=== PATIENT | male | born 1970 | race Caucasian/White ===

== ENCOUNTER 2018-09-04 07:55 | Day surgery (SDC) | payer BC, MEDICAID ==
[2018-09-01 17:23] VITALS: BMI 35.7
--- NOTE | 2018-09-03 17:11 | HP ---
HISTORY AND PHYSICAL DATE OF SURGERY: 09/04/2018 Joey Jones is a 48-year-old patient seen with progressive left shoulder pain. We discussed treatment options. He elected to proceed with arthroscopy. Consent was obtained. PAST MEDICAL HISTORY: Noncontributory. PAST SURGICAL HISTORY: Noncontributory. DAILY MEDICATIONS: Tramadol as needed. ALLERGIES: NONE REPORTED. SOCIAL HISTORY: Denies current tobacco use. PHYSICAL EVALUATION OF THE LEFT SHOULDER: Flexion 130 degrees, abduction 130 degrees, external rotation 20 degrees with weakness. Tenderness along the anterolateral acromion and rotator cuff insertion site. Impingement sign is positive at 90 degrees. Drop-arm sign is positive. His distal neurovascular exam is intact. RADIOGRAPHS: Radiographs of the left shoulder revealed a type 2 anterior acromion, evidence for acromioclavicular joint osteoarthritis and cystic changes of the greater tuberosity. The left shoulder MRI revealed rotator cuff tendon tear. IMPRESSION: Left shoulder impingement with rotator cuff tear. PLAN: Left shoulder arthroscopy with subacromial decompression, probable arthroscopic rotator cuff repair, possible Amando procedure and debridement. MMODL / IJN: [id number] /
[~2018-09-04 07:55] MED LIST: DEXAMETHASONE SOD PHOSPHATE 10 MG/ML 1 ML VIAL IV ONE; HYDROmorphone 0.5 MG/0.5 ML SYRINGE IVP PRN; LACTATED RINGERS 1,000 ML IV SCH; LIDOCAINE 1% 20 ML VIAL (10MG/ML) FOR IV START INTRADERMA PRN; MIDAZOLAM (PF) 2 MG/2 ML VIAL IV PRN; ONDANSETRON 4 MG/2 ML VIAL IVP ONE; SCOPOLAMINE 1.5MG/72HR PATCH TRANSDERM ONE; ceFAZolin IN SWFI 2 GM/20 ML SYRINGE IVP ONE
[2018-09-04] MEDS ORDERED: MIDAZOLAM 2 MG/2 ML VIAL IV ONE (09:06)
[2018-09-04] MEDS ORDERED: LIDOCAINE 1% INJ 10MG/ML (20 ML MDV) ONE (09:33)
[2018-09-04] MEDS ORDERED: PROPOFOL 10 MG/ML 20 ML VIAL IV ONE (09:33)
[2018-09-04] MEDS ORDERED: MIDAZOLAM 2 MG/2 ML VIAL ONE (09:33)
[2018-09-04] MEDS ORDERED: ROPIVACAINE 5 MG/ML 30 ML VIAL ONE (09:33)
[2018-09-04] MEDS ORDERED: fentaNYL (PF) 50 MCG/ML 2 ML AMP ONE (09:33)
[2018-09-04] MEDS ORDERED: SUCCINYLCHOLINE CHLORIDE 100 MG/5 ML SYR IV ONE (09:33)
--- NOTE | 2018-09-04 09:39 | P.ONQ ---
Anesthesiology Proc Note - PNB - Peripheral Nerve Block Performed Left Interscalene Single Time Out Performed: Yes Procedure Start Time: :08 Procedure Stop Time: :15 Indication: Acute Post-Operative Pain, Requested by physician Sedation Type: Sedate with meaningful contact maintained Preparation: Sterile Prep Position: Supine Needle Size: 50mm (2") Needle Gauge: 21 Technique: Ultrasound Injectate: 0.5% Ropivacaine (see comment for volume) (ropi .5% 30cc plus dexamethasone 4mg) Blood Aspirated: No Pain Paresthesia on Injection Noted: No Resistance on Injection: Normal Events: Uneventful and Well Tolerated
[2018-09-04 11:24] VITALS: TEMP 97.1
--- NOTE | 2018-09-04 11:26 | P.OP ---
Date of Procedure: 09/04/18 Preoperative Diagnosis: Left shoulder impingement Postoperative Diagnosis: 1. Left shoulder rotator cuff tear 2. Left shoulder impingement 3. Left shoulder acromioclavicular joint osteoarthritis 4. Left shoulder partial long head biceps tendon tear 5. Left shoulder superficial labral tear Procedure(s) Performed: 1. Left shoulder arthroscopic rotator cuff repair 2. Left shoulder arthroscopic subacromial decompression 3. Left shoulder arthroscopic Amando procedure 4. Left shoulder arthroscopic biceps tenotomy 5. Left shoulder arthroscopic debridement labral tear Implants: 4Arthrex swivel lock anchors Anesthesia: GETA, regional (Interscalene block) Surgeon: Mohsen Bess Estimated Blood Loss (ml): 10 Pathology: none sent Condition: stable Disposition: PACU Indications for Procedure: 48-year-old patient seen with progressive left shoulder pain. After having treatment options discussed, he elected to proceed with arthroscopy. Operative Findings: See description of procedure Description of Procedure: Patient underwent an interscalene block by department of anesthesia for postoperative pain management. The patient was then taken to the operative suite. The patient underwent a general anesthetic by the department of anesthesia. The patient was placed into a lateral position and secured. There was appropriate padding of the bony prominence. Left shoulder was then prepped and draped in normal sterile orthopedic fashion. We placed the extremity in 10 pounds of longitudinal traction. A posterior incision was now made for a posterior working portal site. The trocar and cannula were inserted into the glenohumeral joint. Arthroscopy was initiated. Spinal needle was now inserted anteriorly, to ascertain the anterior working portal site. An incision was now made in that area, a trocar was inserted followed by a probe. There was some superficial tearing of the anterior/superior labrum. There was partial tearing long head biceps tendon. There was an obvious massive rotator cuff tear visualized from glenohumeral side. I performed an arthroscopic biceps tenotomy. I debrided the superficial labral tear. The residual labrum appeared stable. Instruments now removed from the glenohumeral joint. Utilizing the posterior working portal site, the trocar and cannula were inserted into the subacromial space. Arthroscopy initiated. I made an incision 2 fingerbreadths lateral to the acromion. I introduced my trocar followed by my ArthroCare ablator. I now began ablating thick subacromial bursal tissue, which exposed the undersurface of the anterior acromion. There was diminished subacromial space. There was a very prominent anterior acromion. A motorized bur was introduced and a subacromial decompression was performed. I also excised some osteophytes off the inferior aspect of the distal clavicle. The AC joint was visualized and noted to be fairly arthritic. The motorized bur was introduced in the anterior portal site and a Amando procedure was performed without difficulty, decompressing the AC joint nicely. I turned my attention to the rotator cuff. There was a 33.5 cm rotator cuff tear. I debrided the margins getting down to stable tendon tissue. I introduced my motorized bur and abraded the footprint area, getting some petechial bleeding. I now made an accessory portal site off the lateral aspect of the acromion. I punched 2 holes medial for medial row fixation with the assistance of my assistant manager trainee carefully tapping the punch with a mallet as I held the punch and the camera. I now introduced both anchors into the pre-punched holes and my assistant manager trainee tapped them with the mallet as I held anchors and the camera. I assistant manager trainee now screwed the anchors in place a while I held the anchor guide and camera. All 8 limbs of suture were now passed through good bites of rotator cuff tendon. I now punched 2 holes for lateral row fixation again I held the punch and camera while my assistant manager trainee used a mallet to tap in the punch. We now passed sutures through both anchors and individually I introduced the anchors into the pre-punch holes I held the anchor guide in position with one hand holding the camera with the other hand while my assistant manager trainee tensioned the sutures and screwed in the anchors one at a time. All residual suture limbs were now clipped. We had good compression of the tendon along the entire footprint. Instruments now removed from the portal sites. All portal sites were approximated with nylon suture. Sterile dressings were applied followed by a shoulder immobilizer. The patient was awakened, transferred to a bed, and taken to recovery in stable condition.
[2018-09-04 11:35] VITALS: RESP 18
[2018-09-04 12:36] VITALS: PULSE 60
[2018-09-04 12:58] VITALS: BP 142/85
== END 2018-09-04 13:29 | disposition home or self-care (01) ==
LOC: OR 07:55
PROVIDERS: ATTEND Orthopaedic Surgery
DX: M75.102 Unspecified rotator cuff tear or rupture of left shoulder, not specified as traumatic (principal); M75.42 Impingement syndrome of left shoulder; M19.012 Primary osteoarthritis, left shoulder; S46.112A Strain of muscle, fascia and tendon of long head of biceps, left arm, initial encounter; S43.432A Superior glenoid labrum lesion of left shoulder, initial encounter; X58.XXXA Exposure to other specified factors, initial encounter; M25.712 Osteophyte, left shoulder; G47.33 Obstructive sleep apnea (adult) (pediatric)
CPT/HCPCS: 64415; 29826; 29827; 29824; C1713 ×4; C1765; J2250; J1100; J2405; J2001; J3010; J2795; J0330; J2704; J0690

== ENCOUNTER → 2018-11-04 | Outpatient (CLI) | payer BC ==
--- NOTE | 2018-11-04 23:19 | CONS ---
CONSULTATION REASON FOR CONSULTATION: This is a consultation note for sleep apnea. HISTORY OF PRESENT ILLNESS: This is a 48-year-old male patient with known history of MS, has been diagnosed also to have obstructive sleep apnea based on a sleep study that was done in [facility] in April of 2015. At that time, the patient used to weigh 333 pounds. The patient brought in with him documentation of his previous sleep study. Based on the interpretation, the patient has multiple obstructive apneas and hypopneas and his disease was severe with a AHI of 78.4, with a minimum pulse ox of 67 percent during the sleep study. The patient underwent a CPAP titration. He was started on a CPAP pressure of 13 cm of water. Over the past 2 years, the treatment has become more uncomfortable as the patient lost significant amount of weight. He is currently down to 240 pounds. He is unable to tolerate the CPAP unit and he is wondering whether he is still in need of the treatment. Note that he has not been using his CPAP for quite some time and his has not noted any witnessed apneas and his snoring has improved significantly. He is going to bed at around 10 p.m., waking up at 5:45 a.m. in the morning. On weekends, he goes to bed between 11:00 pm to 12:00 am and he gets out of bed somewhere between 8:30 to 9 am in the morning. His sleep is fragmented. He wakes up on and off throughout the night. No witnessed apneas according to the . He is still feeling tired and fatigued. This could be related to his underlying MS. His [place] score is currently at 13. He is coming in for reevaluation. PAST MEDICAL HISTORY: Obstructive sleep apnea. MS and obesity. In terms of the MS, the patient is not receiving any treatment and he is currently being monitored with serial MRIs under the care of Dr. Julius Lanza. PAST SURGICAL HISTORY: Includes a left shoulder arthroscopic surgery for rotator cuff. DRUG ALLERGIES: Not known. OUTPATIENT MEDICATION: Vitamin D. SOCIAL HISTORY: The patient is a nonsmoker. No history of alcohol. No history of IV drugs. FAMILY HISTORY: Negative for sleep apnea. REVIEW OF SYSTEMS: Fourteen-point review of system was done. Positive findings are mentioned in history of present illness. He is having manifestation of MS including problems with gait mobility and equilibrium. No urinary retention. He has on and off arousals in the middle of the night for urination. He has chronic muscle aches and pains. Prior chronic tiredness and sleepiness. No sleep paralysis. No hallucinations. No cataplexy. No indication of any REM behavioral disorder. No grinding of the teeth. No sleepwalking. No restlessness on lower extremities. No sweating. No palpitation. No heartburn. No headaches. PHYSICAL EXAMINATION: BP is 144/89, pulse is 70, respirations 16, temperature 98.3, saturation 98% on room air. [place] score 13, BMI 37.8, and neck size 17.5 inches, weight is 249. Height is 5 feet 8 inches. GENERAL APPEARANCE: Calm, comfortable. HEAD: Atraumatic, normocephalic. NECK: Supple. Mallampati class IV. There is no goiter or neck mass. LUNGS: Clear to auscultation. HEART: Sounds regular rate and rhythm. Normal S1, S2. No S3, S4. No murmurs. ABDOMEN: Soft, nontender. No organomegaly. EXTREMITIES: No edema. No cyanosis or clubbing. NEUROLOGICALLY: Patient is alert and oriented x3. No focal neurological deficits. Gait dysfunction related to his MS. IMPRESSION: 1. Obstructive sleep apnea, severe and baseline with AHI of 78.4, treated with CPAP pressure of 13. As the patient lost approximately 90 pounds, he has been having difficulty tolerating CPAP which is set at a pressure of 13 cm of water. He has a Resmed AutoSet unit which is set at a pressure of 13 yet he has not been able to tolerate the treatment. He was also using AirFit P10 nose pillows. 2. Chronic fatigue and sleepiness, [place] score of 15. 3. Multiple sclerosis. 4. Obesity with ongoing weight loss. PLAN: 1. Encourage further weight loss. 2. Perform a home sleep study to re-evaluate the severity of sleep apnea and decide if treatment is needed. 3. If there is obstructive sleep apnea, I would recommend sending this patient to an automatic mode which will offer him a lower pressure and make him more comfortable. Also replace him with a different mask interface. 4. We will continue to follow and make further recommendations based on results of the home sleep study. MMODL / IJN: [id number] /
== END ==
LOC: SLEEP 16:55
PROVIDERS: ATTEND Internal Medicine
DX: G47.33 Obstructive sleep apnea (adult) (pediatric) (principal); E66.9 Obesity, unspecified; R53.83 Other fatigue; Z99.89 Dependence on other enabling machines and devices
CPT/HCPCS: 99211

== ENCOUNTER → 2020-03-22 | Outpatient (CLI) | payer BC ==
--- NOTE | 2020-03-22 16:31 | P.PN ---
Subjective Progress Note Date: 03/22/20 1-year-old male patient with serum sickness sleep apnea coming in for an annual checkup regarding his SHAY. His last evaluation was in 11/27/2018. The patient has severe disease with an AHI of 74 and currently the patient has an APAP and he is being treated with a minimum pressure of5 and a maximum pressure of 13. He is using a airfit p 10 nasal pillow. the patient has been very compliant with treatment over the past year. On today's evaluation, he has no specific complaints and he wants is supposed to be renewed. I noticed that his thirty- day compliancy wasn't a great [place] his machine with him. Nevertheless, prior to that he was quite compliant. His been averaging at least 6 hours of CPAP use per night and his AHI while on treatment on 0.5 with a peak of 5 L per minute. The average pressure delivered from the APAP unit is at 6.8 cm of water. He has no complaints. No chest pain. No shortness of breath. No hypersomnia and sleepiness during the day. His weight was 249 approximately year ago and currently is up to 52 and assess there is no significant weight. Her weight loss. No major tiredness or sleepiness and no history of any motor vehicle accident because of feeling drowsy or sleepy. He has no complaints at all. Objective - Exam BP is 146/88, pulse is 68, respirations 16, temperature is 90.8, saturation 97% on room air, height is 5 feet and 8 inches, weight is 252 pounds and the patient has an Stanton score of 4 and his body mass index is 38.3 Examination The patient appeared well nourished and normally developed. Vital signs as documented. Head exam is unremarkable. No scleral icterus or corneal arcus noted. Neck is without jugular venous distension, thyromegaly, or carotid bruits. Carotid upstrokes are brisk bilaterally. Lungs are clear to auscultation and percussion. Cardiac exam reveals the PMI to be normally sized and situated. Rhythm is regular. First and second heart sounds normal. No murmurs, rubs or gallops. Abdominal exam reveals normal bowel sounds, no masses, no organomegaly and no aortic enlargement. Extremities are nonedematous and both femoral and pedal pulses are normal.Examination of the skin revealed no evidence of significant rashes, suspicious appearing nevi or other concerning lesions.Neurologically, the patient is awake and alert and the patient does not have any focal neurological deficit. Cranial nerves are essentially intact. Assessment and Plan Plan: 1 severe obstructive sleep apnea with an AHI of 74. Patient continues to be successfully treated with an APAP, minimum pressure of 5 and max pressure of 13. Treatment is successful and the patient is no specific complaints 2 hypersomnia recovered and the patient's Stanton score is down to 4 3 obesity with a BMI of 38.3 and a body weight of 252 Plan keep the same pressure setting, APAP mode, pressure minimum of 5 and a maximum of 13 Introduce the possibility of an airfit P30 i large size nasal pillows an alternative maskfor his P10 model encourage weight loss implement good sleep hygiene measures see me back inferior Mickie follow-up, earlier if needed.
== END | disposition home or self-care (01) ==
LOC: SLEEP 16:13
PROVIDERS: ATTEND Internal Medicine Critical Care Medicine
DX: G47.33 Obstructive sleep apnea (adult) (pediatric) (principal); E66.9 Obesity, unspecified; Z68.38 Body mass index [BMI] 38.0-38.9, adult; Z99.89 Dependence on other enabling machines and devices

== ENCOUNTER → 2020-05-13 | Outpatient (CLI) | payer BC ==
[2020-05-14 04:31] LABS: Basophils # (A) 0.1 k/uL (0-0.2); Basophils % (A) 1 %; Eosinophils # (A) 0.2 k/uL (0-0.7); Eosinophils % (A) 2 %; HCT 48.4 % (39.0-53.0); HGB 15.7 gm/dL (13.0-17.5); Lymphocytes # (A) 1.5 k/uL (1.0-4.8); Lymphocytes % (A) 21 %; MCH 29.3 pg (25.0-35.0); MCHC 32.4 g/dL (31.0-37.0); MCV 90.4 fL (80.0-100.0); Mean Platelet Volume 8.4; Monocytes # (A) 0.4 k/uL (0-1.0); Monocytes % (A) 6 %; Neutrophils # (A) 4.8 k/uL (1.3-7.7); Neutrophils % (A) 68 %; Platelet Count 199 k/uL (150-450); RBC 5.36 m/uL (4.30-5.90); RDW 13.4 % (11.5-15.5); WBC 7.1 k/uL (3.8-10.6)
[2020-05-14 04:33] LABS: INR 0.9 (<1.2); Prothrombin Time 9.9 sec (9.0-12.0)
== END | disposition home or self-care (01) ==
LOC: LABWHC1 15:53
PROVIDERS: ATTEND Orthopaedic Surgery
DX: Z01.818 Encounter for other preprocedural examination (principal); Z01.812 Encounter for preprocedural laboratory examination; M16.11 Unilateral primary osteoarthritis, right hip
CPT/HCPCS: 36415; 85025; 85610; 86850; 86900; 86901; 87070; 93005

== ENCOUNTER → 2020-05-17 | Outpatient (CLI) | payer BC ==
[2020-05-17 17:02] LABS: African American GFR (CKD) >90 (>60 ml/min/1.73 sqM); Anion Gap 7 mmol/L; Blood Urea Nitrogen 26 mg/dL (9-20); Calcium 10.1 mg/dL (8.4-10.2); Carbon Dioxide 26 mmol/L (22-30); Chloride 105 mmol/L (98-107); Glucose 99 mg/dL (74-99); Non-African American GFR(CKD) >90 (>60 ml/min/1.73 sqM); Potassium 4.6 mmol/L (3.5-5.1); Sodium 138 mmol/L (137-145)
== END | disposition home or self-care (01) ==
LOC: LABPAT 16:03
PROVIDERS: ATTEND Orthopaedic Surgery
DX: Z01.818 Encounter for other preprocedural examination (principal); M16.11 Unilateral primary osteoarthritis, right hip
CPT/HCPCS: 80048

== ENCOUNTER 2020-05-23 08:51 | Day surgery (SDC) | payer BC ==
[2020-05-19 15:34] VITALS: BMI 37.2
--- NOTE | 2020-05-22 10:58 | HP ---
HISTORY AND PHYSICAL REASON FOR ADMISSION: Surgery is 05/23/2020. HISTORY OF PRESENT ILLNESS: Joey Jones is a 50-year-old gentleman seen with symptomatic right hip osteoarthritis. We discussed options for treatment. He elected to proceed with right total hip arthroplasty. Consent regarding the procedure was obtained. PAST MEDICAL HISTORY: Noncontributory. SURGICAL HISTORY: Noncontributory. MEDICATIONS: Multivitamin. ALLERGIES: None. SOCIAL HISTORY: He denies current tobacco use. PHYSICAL EXAMINATION: Evaluation of the right hip: Very limited range of motion with severe pain. Diffuse tenderness about the hip girdle. Positive hip impingement sign. Straight leg raise negative. Distal neurovascular exam is intact. RADIOGRAPHS: Radiographs of the right hip reveals severe osteoarthritic changes. IMPRESSION: 1. Right hip osteoarthritis. 2. History of multiple sclerosis. PLAN: Direct anterior approach right total hip arthroplasty. Surgery 05/23/2020. MMODL / IJN: [id number] /
[~2020-05-23 08:51] MED LIST changes: +ACETAMINOPHEN TAB 500 MG TAB PO PRN; -DEXAMETHASONE SOD PHOSPHATE 10 MG/ML 1 ML VIAL IV ONE; +DEXAMETHASONE SOD PHOSPHATE 4 MG/ML 1 ML VIAL IV ONE; -HYDROmorphone 0.5 MG/0.5 ML SYRINGE IVP PRN; -LIDOCAINE 1% 20 ML VIAL (10MG/ML) FOR IV START INTRADERMA PRN; +MELOXICAM 7.5 MG TAB PO PRN; -MIDAZOLAM (PF) 2 MG/2 ML VIAL IV PRN; +Ropivacaine 246 mg in RECK SYR 246 MG, Epinephrine 0.5 mg in RECK SYR 0.5 MG, Clonidine... MISCELLANE PRN; -SCOPOLAMINE 1.5MG/72HR PATCH TRANSDERM ONE; +TRANEXAMIC ACID 1,000 MG in SODIUM CHLORIDE 0.9% 100 ML IVPB PRN; -ceFAZolin IN SWFI 2 GM/20 ML SYRINGE IVP ONE
[2020-05-23] MEDS ORDERED: LACTATED RINGERS 1,000 ML IV ONE ×4 (09:24→11:48)
[2020-05-23] MEDS ORDERED: PROPOFOL 10 MG/ML 20 ML VIAL IV ONE (09:47)
[2020-05-23] MEDS ORDERED: SUCCINYLCHOLINE CHLORIDE 100 MG/5 ML SYR IV ONE (09:47)
[2020-05-23] MEDS ORDERED: HYDROmorphone (PF) 1 MG/ML ONE (09:47)
[2020-05-23] MEDS ORDERED: TRANEXAMIC ACID 1,000 MG/10 ML VIAL ONE (09:47)
[2020-05-23] MEDS ORDERED: fentaNYL (PF) 50 MCG/ML 2 ML AMP ONE (09:47)
[2020-05-23] MEDS ORDERED: MIDAZOLAM 2 MG/2 ML VIAL ONE (09:47)
[2020-05-23] MEDS ORDERED: SODIUM CHLORIDE 0.9% 100 ML BAG ONE (09:47)
[2020-05-23] MEDS ORDERED: ROCURONIUM 10 MG/ML (10 ML VIAL) IV ONE (09:47)
[2020-05-23] MEDS ORDERED: LIDOCAINE 1% INJ 10MG/ML (20 ML MDV) ONE (09:47)
[2020-05-23] MEDS ORDERED: KETOROLAC 15 MG/ML 1 ML VIAL ONE (09:47)
[2020-05-23] MEDS ORDERED: ceFAZolin 1,000 MG in SODIUM CHLORIDE 0.9% 1,000 ML IRRIGATION ONE (10:17)
[2020-05-23] MEDS ORDERED: HYDROcodone/APAP 5-325MG 1 EACH TAB PO PRN ×2 (11:48)
[2020-05-23] MEDS ORDERED: HYDROmorphone 0.5 MG/0.5 ML SYRINGE IVP PRN (11:48)
[2020-05-23] MEDS ORDERED: NALOXONE 0.4 MG/ML 1 ML VIAL IV PRN (11:48)
[2020-05-23] MEDS ORDERED: HYDROmorphone 0.2 MG/1 ML SYRINGE IVP PRN (11:48)
[2020-05-23] MEDS ORDERED: ONDANSETRON 4 MG/2 ML VIAL IVP PRN (11:48)
[2020-05-23] MEDS ORDERED: HYDROmorphone 1 MG/ML 1 ML SYRINGE IVP PRN (11:48)
--- NOTE | 2020-05-23 11:48 | P.OP ---
Date of Procedure: 05/23/20 Preoperative Diagnosis: Right hip osteoarthritis Postoperative Diagnosis: Right hip osteoarthritis Procedure(s) Performed: Direct anterior right total hip arthroplasty Implants: 1. Depuy Corail 125 standard collar size 11 press-fit femoral stem 2. Depuy pinnacle 58 mm press-fit acetabular shell 3. Depuy pinnacle polyethylene acetabular liner +4 neutral 36 mm ID 58 mm OD 4. Biolox delta ceramic femoral head +1.5 36 mm Anesthesia: JOSEA, local Surgeon: Mohsen Bess Air/Ocean Export Clerk #1: Kwaku Blackwell Estimated Blood Loss (ml): 150 Pathology: other (Femoral head) Condition: stable Disposition: PACU Indications for Procedure: 50-year-old patient seen with symptomatic right hip osteoarthritis. After treatment options were discussed, he elected to proceed with total hip arthroplasty. Operative Findings: See description of procedure Description of Procedure: The patient was taken to the operative suite. Patient underwent a general anesthetic by the department of anesthesia. Patient was then transferred to the [place] table. Patient was given preoperative IV antibiotics and TXA. Both lower extremities were placed in standard leg spars. The hip was then prepped and draped in the normal sterile orthopedic fashion. A standard anterior incision was made beginning 3 cm lateral and 1 cm distal to the ASIS extending 10 cm. Dissection was then carried down through the subcutaneous soft tissues down to the fascia overlying the tensor fascia anastasiia. An incision was now made through the fascia. Careful dissection was taken down exposing the tensor fascia anastasiia muscle. A Cobra retractor was now placed along the medial femoral neck and a second one along the lateral femoral neck. The venous circumflex vessels were now identified, cauterized and clipped. We identified the anterior hip capsule. An incision was made through the hip capsule along the lateral border. I performed a partial anterior capsulectomy. Retractors were now placed around the femoral neck itself. A femoral neck cut was now made with a sagittal saw. It was completed with an osteotome at the lateral neck area. The femoral head was now removed without difficulty. The extremity was now rotated to 45 of external rotation. It was locked in position. Residual labrum was now debrided out. Serial reaming was performed of the acetabulum while Tony URRUTIA assisted holding an anterior retractor for exposure. Once we reached the appropriate size and a trial was position and fit nicely. The appropriate size was now chosen opened and made available. It was introduced into the acetabulum without difficulty. The C-arm/fluoroscopy was now brought into the operative field. We made sure we had a true AP pelvic view. We now under direct C- arm/fluoroscopy introduced into the acetabular component with appropriate version and inclination. I held the cup in appropriate position well Tony URRUTIA used a mallet to seat the acetabular component. I noted the component now to be well seated and stable. Acetabular cup introduce her was removed. The C-arm was pulled back. An appropriate liner was introduced and clicked into position. It was felt to be stable. At this point retractors were removed. The extremity was now placed into 120 external rotation with no traction. The leg was now dropped to the ground and adducted. Appropriate retractors were now positioned along the proximal femur. We also placed our femoral look into position. Additional capsular releasing was performed to gain access to the proximal femur. We now used a box osteotome. A canal finder was now utilized. The bone was quite hard so therefore we introduced a guidewire and did some serial reaming up to an 11-06/04 as I had templated him to a 11 femoral component. Serial broaching was now performed with the assistance of Tony URRUTIA tapping the broaches down with a mallet while held the broach in appropriate rotation and position. This was done until we reached the appropriate size with good overall rotational stability. Appropriate calcar planing was performed. A trial head/neck was placed into position. The hip was now reduced. The C-arm/fluoroscopy was brought back into the operative field. I obtained an AP pelvis to ascertain/evaluate leg length which appeared to be reasonable. The trial components appeared reasonable. The C-arm/fluoroscopy was pulled back. Retractors were repositioned and the hip was dislocated. The leg was again taken down to the ground and adducted. Appropriate retractors were repositioned as well as the femoral hook. All trial components were removed. The femoral implant was opened along with the femoral head. The femoral implant was introduced on the appropriate handle into our pre-broached area. I held the component position well Tony URRUTIA used a mallet to seat the femoral component. The femoral component was now noted to be well seated and stable.. The femoral head was introduced with good positioning and fixation noted. Retractors were now removed. The hip was now reduced. There appeared be good positioning of the hip confirmed on intraoperative fluoroscopy. Spot films were obtained to document this. A second gram of TXA was given. The deep and superficial soft tissues were infiltrated with local analgesic. Bipolar cautery had been utilized intermittently through the procedure for hemostasis. The wound was irrigated copiously with pulse lavage mechanical irrigation. The fascia was repaired with Vicryl suture. The subcutaneous soft tissues were repaired in layers with Vicryl suture. The skin was approximated with pernio/Dermabond. Sterile dressings were applied. Patient was then awakened, transferred to a bed and taken to recovery in stable condition. Tony URRUTIA assisted with the complex procedure.
[2020-05-23] MEDS: HYDROmorphone 0.5 MG/0.5 ML SYRINGE IVP PRN ×4 (12:07→12:40)
[2020-05-23 12:09] VITALS: RESP 16; TEMP 98.2
[2020-05-23] MEDS ORDERED: diphenhydrAMINE 50 MG/ML 1 ML VIAL IVP ONE (12:27)
--- NOTE | 2020-05-23 14:19 | XR ---
Fluoroscopy History: RIGHT ANTERIOR HIP Radiology provided fluoroscopic time for right anterior hip surgery.
--- NOTE | 2020-05-23 14:23 | FL ---
Fluoroscopy History: RIGHT ANTERIOR HIP 17 SEC fl
[2020-05-23 14:43] VITALS: BP 142/69; PULSE 85
[2020-05-23] MEDS ORDERED: ceFAZolin 3 GM in SODIUM CHLORIDE 0.9% 100 ML IVPB ONE (16:00)
== END 2020-05-23 16:53 | disposition home health service (06) ==
LOC: OR 08:51
PROVIDERS: ATTEND Orthopaedic Surgery
DX: M16.11 Unilateral primary osteoarthritis, right hip (principal); G35 Multiple sclerosis
CPT/HCPCS: 97110; 97161; 73501; 27130; J1200; J1100; J0690 ×2; J2405; J1170; 86850; 86900; 86901; 88300